=== PATIENT | female | born 1945 | race Caucasian/White ===

== ENCOUNTER 2016-12-20 21:34 | Emergency (ER) | payer MEDICARE, BC ==
[2016-12-20 21:37] VITALS: BP 158/78; PULSE 88; TEMP 97.5; O2SAT 95
--- NOTE | 2016-12-20 22:10 | PD ---
HPI Chief Complaint: Edema Time Seen by Provider: 22:08 Travel History International Travel<30 days: No Contact w/Intl Traveler<30days: No Traveled to known affect area: No History of Present Illness HPI 71-year-old female presents to the emergency department for evaluation of bilateral lower extremity edema that started approximately 2 weeks ago, but is worsening. Patient states that she got injections into her bilateral feet for arthritis on November 21 in November 28. She also had a callus removed from the left lateral foot on December 04. She states she is from [place]. She came to [place] from [place] yesterday. She denies any fevers or chills. No chest pain or shortness of breath. No abdominal pain. No nausea, vomiting, diarrhea. Patient denies any history of lower extremity edema. She states that her bilateral feet are slightly red and warm. Patient has not been on antibiotics. [facility] Social History Alcohol Use: No Tobacco Use: No Substance Use: No Allergies-Medications (Allergen,Severity, Reaction): Coded Allergies: No Known Allergies (Unverified , 12/20/16) Review of Systems Except as stated in HPI: all other systems reviewed are Neg Physical Exam Narrative GENERAL: Well-nourished, well-developed female patient, afebrile. SKIN: Focused skin assessment warm/dry. Bilateral feet are slightly erythematous and warm to palpation. HEAD: Normocephalic. Atraumatic EYES: No scleral icterus. No injection or drainage. NECK: Supple, trachea midline. No JVD or lymphadenopathy. CARDIOVASCULAR: Regular rate and rhythm without murmurs, gallops, or rubs. RESPIRATORY: Breath sounds equal bilaterally. No accessory muscle use. Lungs sounds are clear to auscultation. GASTROINTESTINAL: Abdomen soft, non-tender, nondistended. MUSCULOSKELETAL: No cyanosis. 2+ edema noted to bilateral feet and ankles. BACK: Nontender without obvious deformity. No CVA tenderness. Data Data Last Documented VS Vital Signs Date Time Temp Pulse Resp B/P Pulse Ox O2 Delivery O2 Flow Rate FiO2 12/20/16 22:32 78 18 143/70 95 Room Air 12/20/16 21:37 97.5 Orders Iv Access Insert/Monitor (12/20/16 22:06) Complete Blood Count With Diff (12/20/16 22:06) Basic Metabolic Panel (Bmp) (12/20/16 22:06) B-Type Natriuretic Peptide (12/20/16 22:06) Us Leg Venous Doppler Bilat (12/20/16 ) Labs Laboratory Tests Test 12/20/16 22:15 White Blood Count 8.6 TH/MM3 Red Blood Count 4.79 MIL/MM3 Hemoglobin 13.7 GM/DL Hematocrit 42.0 % Mean Corpuscular Volume 87.7 FL Mean Corpuscular Hemoglobin 28.5 PG Mean Corpuscular Hemoglobin 32.5 % Concent Red Cell Distribution Width 13.0 % Platelet Count 369 TH/MM3 Mean Platelet Volume 7.9 FL Neutrophils (%) (Auto) 59.8 % Lymphocytes (%) (Auto) 23.9 % Monocytes (%) (Auto) 12.7 % Eosinophils (%) (Auto) 2.8 % Basophils (%) (Auto) 0.8 % Neutrophils # (Auto) 5.2 TH/MM3 Lymphocytes # (Auto) 2.1 TH/MM3 Monocytes # (Auto) 1.1 TH/MM3 Eosinophils # (Auto) 0.2 TH/MM3 Basophils # (Auto) 0.1 TH/MM3 CBC Comment DIFF FINAL Differential Comment MDM Medical Decision Making Medical Screen Exam Complete: Yes Emergency Medical Condition: Yes Medical Record Reviewed: Yes Differential Diagnosis Cellulitis versus idiopathic edema versus CHF versus electrolyte abnormality versus DVT Narrative Course 71-year-old female presents to the emergency department for evaluation of bilateral lower extremity edema that started 2 weeks ago, but has been worsening. CBC, BMP, BNP are ordered and pending. Venous Doppler ultrasound of bilateral lower extremities is ordered and pending. Dr. Rivera will resume care and disposition of patient. Lashawn Tadeo Dec 20, 2016 22:10
[2016-12-20 22:32] VITALS: BP 143/70; PULSE 78; RESP 18; O2SAT 95
[2016-12-20 22:36] LABS: AUTOMATED NEUTROPHIL # 5.2 TH/MM3 (1.8-7.7); BASOPHIL # 0.1 TH/MM3 (0-0.2); BASOPHIL % 0.8 % (0.0-2.0); EOSINOPHIL # 0.2 TH/MM3 (0-0.4); EOSINOPHIL % 2.8 % (0.0-4.0); HEMO FLAGS DIFF FINAL; LYMPH % 23.9 % (9.0-44.0); LYMPHOCYTE # 2.1 TH/MM3 (1.0-4.8); MEAN CELL VOLUME 87.7 FL (80.0-100.0); MEAN CORPUSCULAR HEMOGLOBIN 28.5 PG (27.0-34.0); MEAN CORPUSCULAR HGB CONC 32.5 % (32.0-36.0); MONO % 12.7 % (0.0-8.0); NEUT % 59.8 % (16.0-70.0); PLATELET COUNT 369 TH/MM3 (150-450); RED BLOOD COUNT 4.79 MIL/MM3 (4.00-5.30); WHITE BLOOD COUNT 8.6 TH/MM3 (4.0-11.0)
[2016-12-20 22:57] LABS: POTASSIUM 3.9 MEQ/L (3.5-5.1)
[2016-12-20 23:47] VITALS: BP 164/70; PULSE 76; RESP 18; O2SAT 97
--- NOTE | 2016-12-20 23:47 | RADRPT ---
EXAM DATE/TIME: 12/20/2016 22:58 [facility] COMPARISON: No previous studies available for comparison. INDICATIONS : Bilateral leg swelling. MEDICAL HISTORY : Hypertension. Diverticulitis. Cerebrovascular accident. Asthma. SURGICAL HISTORY : Multiple hernia repairs. Colon resection. ENCOUNTER: Initial ACUITY: 2 weeks PAIN SCORE: 4/10 LOCATION: Bilateral legs. TECHNIQUE: Venous ultrasound of the left and right leg was performed from the inguinal ligament to the proximal calf. Real-time, color Doppler and spectral tracing, compression and augmentation techniques were us ed. FINDINGS: RIGHT LEG: There is normal compressibility of the deep venous system from the inguinal region to the proximal ca lf. No echogenic clot is seen in the lumen of the common femoral, femoral, popliteal, and posterior tibial veins. There is a normal response of the venous system to proximal and distal augmentation an d respiration. LEFT LEG: There is normal compressibility of the deep venous system from the inguinal region to the proximal ca lf. No echogenic clot is seen in the lumen of the common femoral, femoral, popliteal, and posterior tibial veins. There is a normal response of the venous system to proximal and distal augmentation an d respiration. CONCLUSION: Normal examination. Bryon Mccoy MD on December 20, 2016 at 23:46 Board Certified Radiologist. This report was verified electronically.
--- NOTE | 2016-12-21 01:56 | PD ---
Physical Exam Date Seen by Provider: Dec 21, 2016 Data Data Last Documented VS Vital Signs Date Time Temp Pulse Resp B/P Pulse Ox O2 Delivery O2 Flow Rate FiO2 12/20/16 23:47 76 18 164/70 97 Room Air 12/20/16 21:37 97.5 Orders Iv Access Insert/Monitor (12/20/16 22:06) Complete Blood Count With Diff (12/20/16 22:06) Basic Metabolic Panel (Bmp) (12/20/16 22:06) B-Type Natriuretic Peptide (12/20/16 22:06) Us Leg Venous Doppler Bilat (12/20/16 ) Labs Laboratory Tests Test 12/20/16 22:15 White Blood Count 8.6 TH/MM3 Red Blood Count 4.79 MIL/MM3 Hemoglobin 13.7 GM/DL Hematocrit 42.0 % Mean Corpuscular Volume 87.7 FL Mean Corpuscular Hemoglobin 28.5 PG Mean Corpuscular Hemoglobin 32.5 % Concent Red Cell Distribution Width 13.0 % Platelet Count 369 TH/MM3 Mean Platelet Volume 7.9 FL Neutrophils (%) (Auto) 59.8 % Lymphocytes (%) (Auto) 23.9 % Monocytes (%) (Auto) 12.7 % Eosinophils (%) (Auto) 2.8 % Basophils (%) (Auto) 0.8 % Neutrophils # (Auto) 5.2 TH/MM3 Lymphocytes # (Auto) 2.1 TH/MM3 Monocytes # (Auto) 1.1 TH/MM3 Eosinophils # (Auto) 0.2 TH/MM3 Basophils # (Auto) 0.1 TH/MM3 CBC Comment DIFF FINAL Differential Comment Sodium Level 140 MEQ/L Potassium Level 3.9 MEQ/L Chloride Level 106 MEQ/L Carbon Dioxide Level 26.0 MEQ/L Anion Gap 8 MEQ/L Blood Urea Nitrogen 20 MG/DL Creatinine 0.86 MG/DL Estimat Glomerular Filtration 65 ML/MIN Rate Random Glucose 77 MG/DL Calcium Level 9.4 MG/DL B-Type Natriuretic Peptide 14 PG/ML [facility] Medical Record Reviewed: Yes Supervised Visit with REYNA: Yes Interpretation(s) Vital Signs Date Time Temp Pulse Resp B/P Pulse Ox O2 Delivery O2 Flow Rate FiO2 12/20/16 23:47 76 18 164/70 97 Room Air 12/20/16 22:32 78 18 143/70 95 Room Air 6/30/17 21:37 97.5 88 158/78 95 Laboratory Tests Test 12/20/16 22:15 White Blood Count 8.6 TH/MM3 (4.0-11.0) Red Blood Count 4.79 MIL/MM3 (4.00-5.30) Hemoglobin 13.7 GM/DL (11.6-15.3) Hematocrit 42.0 % (35.0-46.0) Mean Corpuscular Volume 87.7 FL (80.0-100.0) Mean Corpuscular Hemoglobin 28.5 PG (27.0-34.0) Mean Corpuscular Hemoglobin 32.5 % Concent (32.0-36.0) Red Cell Distribution Width 13.0 % (11.6-17.2) Platelet Count 369 TH/MM3 (150-450) Mean Platelet Volume 7.9 FL (7.0-11.0) Neutrophils (%) (Auto) 59.8 % (16.0-70.0) Lymphocytes (%) (Auto) 23.9 % (9.0-44.0) Monocytes (%) (Auto) 12.7 % (0.0-8.0) Eosinophils (%) (Auto) 2.8 % (0.0-4.0) Basophils (%) (Auto) 0.8 % (0.0-2.0) Neutrophils # (Auto) 5.2 TH/MM3 (1.8-7.7) Lymphocytes # (Auto) 2.1 TH/MM3 (1.0-4.8) Monocytes # (Auto) 1.1 TH/MM3 (0-0.9) Eosinophils # (Auto) 0.2 TH/MM3 (0-0.4) Basophils # (Auto) 0.1 TH/MM3 (0-0.2) CBC Comment DIFF FINAL Differential Comment Sodium Level 140 MEQ/L (136-145) Potassium Level 3.9 MEQ/L (3.5-5.1) Chloride Level 106 MEQ/L (98-107) Carbon Dioxide Level 26.0 MEQ/L (21.0-32.0) Anion Gap 8 MEQ/L (5-15) Blood Urea Nitrogen 20 MG/DL (7-18) Creatinine 0.86 MG/DL (0.50-1.00) Estimat Glomerular Filtration 65 ML/MIN (>89) Rate Random Glucose 77 MG/DL (74-106) Calcium Level 9.4 MG/DL (8.5-10.1) B-Type Natriuretic Peptide 14 PG/ML (0-100) Last Impressions Lower Extremity Ultrasound 12/20/16 0000 Signed Impressions: Service Date/Time: Tuesday, December 20, 2016 22:58 - CONCLUSION: Normal examination. Bryon Mccoy MD Differential Diagnosis dvt, dependent edema, electrolyte abnormality Narrative Course I, Dr. Rivera, have reviewed the advance practice practitioner's documentation and am in agreement, met with the patient face to face, made the diagnosis, and the medical decision making was done by me. *My assessment and Findings: Lower extremity edema - patient is a 71-year-old female who presents to emergency room with complaints of bilateral extremity edema which has been ongoing for the past 2 weeks, she reports that she is here visiting from [place], patient reports no shortness of breath at this time. Patient with no history of PE or DVT. Patient with no chest pain or shortness of breath at this time. Upon arrival to emergency room, patient did have lab work drawn. CBC: WNL, BMP: WNL, BNP: 14. Doppler ultrasound of legs were negative for DVT. Patient with mostly dependent edema to lower extremity, discussed with patient need to elevate her lower extremities to help decrease swelling. She understands if swelling persists, she will need to have repeat ultrasound in 1 week. Copy of her US report was given to her. Patient happy with plan of care Diagnosis Primary Impression: Localized swelling of both lower legs Patient Instructions: General Instructions Additional Instruction: Please follow up with your primary care doctor Return to the emergency room as needed Please have your ultrasound repeated in 1 week if swelling persists Please bring the copy of your ultrasound report to doctor's office for follow-up Disposition: 01 DISCHARGE HOME Condition: Stable [place] Rivera DO Dec 21, 2016 01:56
[2016-12-21] MEDS ORDERED: SPIR25TA PO (02:05)
[2016-12-21] MEDS ORDERED: QUIN5TAB6 PO (02:05)
[2016-12-21] MEDS ORDERED: CENTCHW3 PO (02:05)
[2016-12-21] MEDS ORDERED: TRIPCAP5 PO (02:05)
[2016-12-21] MEDS ORDERED: DULO1CAP2 PO (02:05)
[2016-12-21] MEDS ORDERED: ZANT150T2 PO (02:05)
[2016-12-21] MEDS ORDERED: LABE100T2 PO (02:05)
[2016-12-21] MEDS ORDERED: CLOP75TA PO (02:05)
[2016-12-21 02:07] VITALS: BP 155/64
== END 2016-12-21 02:22 | disposition home or self-care (01) ==
LOC: NEPE 21:34
DX: M79.89 Other specified soft tissue disorders (principal); R60.9 Edema, unspecified
CPT/HCPCS: 80048; 83880; 85025; 93970